=== PATIENT | female | born 1950 | race Caucasian/White ===

== ENCOUNTER 2017-03-15 18:17 | Emergency (ER) | payer MEDICARE, MEDICAID ==
[~2017-03-15] VITALS: Ht 154.9 cm; Wt 118.6 kg
[2017-03-15 18:21] VITALS: BP 153/88; PULSE 87; RESP 19; O2SAT 96
--- NOTE | 2017-03-15 19:17 | DRSVH ---
PROCEDURE: X-RAY RIGHT WRIST COMPLETE, MINIMUM THREE VIEWS ([id number]) INDICATIONS: Wrist pain TECHNIQUE: 4 views of the wrist were acquired. COMPARISON: None. FINDINGS: Bones: No fractures or dislocations. No suspicious bony lesions. Scaphoid view: No trauma. A small amorphous calcific radiodensities present at the lateral border o f the radial styloid process base, and this appears to represent calcific tendinitis. Soft tissues: No suspicious soft tissue calcifications. IMPRESSION: No acute trauma found. Mild arthritic change at the radiocarpal joint, moderate arthrit ic change at the base of the first metacarpal. Small amount of calcific tendinitis at the base of th e radial styloid process. Dictated by: Alvaro Champion M.D. on 03/15/2017 at 19:14 Approved by: Alvaro Champion M.D. on 03/15/2017 at 19:16
--- NOTE | 2017-03-15 20:49 | ED.REPORT ---
HPI-Extremity Problem Upper Date of Service Mar 15, 2017 ED Provider: Trsiton Vernon MD A 66 year old female with a history of hypertension presents to the ED complaining of right wrist pain. The pt pushed herself out of bed with her right hand two days ago and "felt a tear" in her wrist. It has been painful since with a reduced range of motion, and began swelling. Icing the wrist helped to relieve her symptoms somewhat, but she is still experiencing pain. Nursing Notes Stated Complaint: RT WRIST PAIN Chief Complaint: Extremity Trauma Nursing Notes Reviewed: Yes Allergies: Coded Allergies: acetaminophen (Verified Allergy, Unknown, GI upset, 03/15/17) hydrocodone bitartrate (Verified Allergy, Unknown, GI upset, 03/15/17) Uncoded Allergies: PENICILLIN (Allergy, Unknown, 03/15/17) General Time Seen by MD: 20:48 Chief Complaint Wrist injury right Hx Obtained From: Patient Arrived By: Walk-in Onset Occurred: 2 days ago Symptom Duration: Since onset Recent Healthcare: No recent hospitalization, Recent doctor visit Similar Sx Previous: No Past Medical History Past Medical History hypertension hiatal hernia Past Surgical History none reported Smoking History Unknown if Ever Smoker Ambulatory Status Independent Review of Systems Musculoskeletal: Reports: Joint pain, Joint swelling, Denies: Back pain, Neck pain Skin: Denies Rash Complete sys rev & neg: except as marked. Respiratory: Denies: Non-productive cough, Shortness of breath Cardiovascular: Denies: Chest pain Physical Exam Initial Vital Signs Vital Signs (First) Date Time Temp Pulse Resp B/P Pulse Ox O2 Delivery O2 Flow Rate FiO2 03/15/17 18:21 36.4 87 19 153/88 96 Room Air Initial VS: Reviewed General/Constitutional: Awake, Alert Neck: Atraumatic, Supple, Full range of motion Respiratory / Chest: Atraumatic, Breath sounds NL, Breath sounds = bilat, No respiratory distress Cardiovascular: Heart rate NL, Regular rhythm, Heart sounds NL Upper Extremity / MS: Atraumatic, Full range of motion Wrist / Hand: Neurologic intact, Vascular intact pain with extension resisted extension at the right thumb flexion normal Skin: Atraumatic, Color NL, No rash, Warm, Dry Neurologic: Oriented X3, Speech NL, No motor deficits, No sensory deficits Head / Eyes: Atraumatic, Normocephalic, PERRL, EOMI ENT: Atraumatic, Airway patent, Mucous membranes moist Abdomen: Atraumatic, Soft, Non-tender Back: Atraumatic, Full range of motion Lower Extremity / Pelvis / MS: Atraumatic, Full range of motion Psychiatric: Affect NL, Mood NL Interpretation & Diagnostics Interpretation & Diagnostics: Right Wrist X-Ray: IMPRESSION: No acute trauma found. Mild arthritic change at the radiocarpal joint, moderate arthritic change at the base of the first metacarpal. Small amount of calcific tendinitis at the base of the radial styloid process. Dictated by: Alvaro Champion M.D. on 03/15/2017 at 19:14 Approved by: Alvaro Champion M.D. on 03/15/2017 at 19:16 Procedures Splint Application - Fx Mgt Splint Application- Fx Mgt: thumb spica Time: 21:22 Procedure Performed by: ED physician, [employer], Under my direct supervis Precise Anatomic Location: right wrist Definitive Fracture Care: Pain control, Splint Post-Procedure / Complications: Cap refill normal, Post splint vascular nl, Post splint neuro nl, Condition improved, Tolerated procedure well, Patient stable Re-Eval/Medical Decision Source of Hx: Old records Re-Evaluation/Progress : Time of Eval: 21:04 Re-Evaluation/Progress Note: Pt declines splint and intends to use one that she has at home. Counseled Regarding: Diagnosis, Lab results, Need for follow-up, When/why to return to ED Discharge & Departure Impression: Primary Impression: Tendinitis of extensor tendon of right hand Disposition: Home Discharge Condition All VS Reviewed: Yes Condition: Stable Patient Instructions: Splint Care (ED), Tendinitis (ED) Additional Instructions: Thank you for allowing us to be a part of your care. Wear the splint night and day for one week. Take ibuprofen 400 mg every 8 hours as directed for pain. Call your primary care physician Friday morning to arrange an appointment early the following week. Return to the emergency department if you develop any new or worsening symptoms including fever or increasing pain. Referrals: Vanessa Tadeo MD (PCP) Scribe Attestation Portions of this note were transcribed by Carrie Valle. I, Dr. Vernon personally performed the history, physical exam and medical decision-making; I reviewed and confirmed the accuracy of the information in the transcribed note. copies to: Vanessa Tadeo MD, Kirk H MD Mar 15, 2017 20:49 CARRIE VALLE Mar 15, 2017 20:56
[2017-03-15 21:47] VITALS: BP 152/83; PULSE 75; RESP 16; O2SAT 96
== END 2017-03-15 21:26 | disposition home or self-care (01) ==
LOC: SED 18:17
DX: M77.9 Enthesopathy, unspecified (principal); X50.9XXA Other and unspecified overexertion or strenuous movements or postures, initial encounter; Y93.89 Activity, other specified; Y92.9 Unspecified place or not applicable; Y99.8 Other external cause status; I10 Essential (primary) hypertension; Z88.6 Allergy status to analgesic agent; Z88.5 Allergy status to narcotic agent